=== PATIENT | female | born 1975 | race Caucasian/White ===

== ENCOUNTER 2022-05-02 06:32 | Inpatient (IN) | payer BC ==
[2022-05-02] MEDS ORDERED: Bupivacaine 0.5%/EPINEPHrine 1:200,000 50 ML MDV ONE (06:59)
[2022-05-02] MEDS ORDERED: cefOXitin 2 GM Vial ONE (06:59)
[2022-05-02] MEDS ORDERED: fentaNYL 250 MCG/5 ML SDV ONE ×2 (07:00→09:25)
[2022-05-02] MEDS ORDERED: Glycopyrrolate 0.2 MG/ML 5 ML MDV ONE (07:01)
[2022-05-02] MEDS ORDERED: Dexamethasone 4 MG/ML SDV ONE (07:01)
[2022-05-02] MEDS ORDERED: Ondansetron 4 MG/2 ML SDV ONE (07:01)
[2022-05-02] MEDS ORDERED: Neostigmine Methylsulfate 1 MG/ML 5 ML Syringe ONE (07:01)
[2022-05-02] MEDS ORDERED: Propofol 200 MG/20 ML SDV ONE (07:01)
[2022-05-02] MEDS ORDERED: Succinylcholine 200 MG/10 ML MDV ONE (07:01)
[2022-05-02] MEDS ORDERED: Rocuronium 50 MG/5 ML Vial ONE (07:01)
[2022-05-02] MEDS ORDERED: Acetaminophen 500 MG Tab PO ONE (07:30)
[2022-05-02] MEDS ORDERED: Celecoxib 200 MG Cap PO ONE (07:30)
[2022-05-02] MEDS ORDERED: Scopolamine 1.5 MG Transdermal Patch TRDERM SCH (07:30)
[2022-05-02] MEDS ORDERED: Dextrose 5%-Lactated Ringers 1,000 ML IV SCH (08:00)
[2022-05-02] MEDS ORDERED: Albuterol/Ipratropium 3.0-0.5 MG/3 ML Neb Soln NEB ONE (09:00)
[2022-05-02] MEDS ORDERED: cefOXitin 2 GM in Sodium Chloride 0.9% 50 ML IV ONE (09:00)
[2022-05-02] MEDS ORDERED: Ketamine 18 MG in Sodium Chloride 0.9% 19.82 ML IV SCH (09:15)
[2022-05-02] MEDS ORDERED: Ketamine 500 MG/5 ML MDV IV SCH (09:15)
[2022-05-02] MEDS ORDERED: Ropivacaine 50 ML, dexAMETHasone 8 MG, EPINEPHrine 0.4 MG, Sodium Chloride 0.9% 27.6 ML NERVRT SCH ×4 (09:15)
[2022-05-02] MEDS ORDERED: Labetalol 20 MG/4 ML Syringe ONE (09:33)
[2022-05-02 10:29] LABS: HEMOGLOBIN A1C 6.7 % (4.5-6.2)
[2022-05-02] MEDS ORDERED: Glucagon,Human Recombinant 1 MG Vial IM PRN (11:05)
[2022-05-02] MEDS ORDERED: 50% Dextrose in Water 50 ML Syringe IVPUSH PRN (11:05)
[2022-05-02] MEDS ORDERED: Insulin Lispro 100 Unit/ML 3 ML KwikPen SUBCUT ONE (11:15)
[2022-05-02] MEDS ORDERED: hydrOXYzine HCL 100 MG/2 ML SDV IM ONE (11:30)
[2022-05-02] MEDS ORDERED: Cyclobenzaprine 10 MG Tab PO PRN (12:52)
[2022-05-02] MEDS ORDERED: Metoclopramide 10 MG/2 ML SDV IVPUSH PRN (13:00)
[2022-05-02] MEDS ORDERED: Albuterol/Ipratropium 3.0-0.5 MG/3 ML Neb Soln INH PRN (13:00)
[2022-05-02] MEDS ORDERED: Labetalol 20 MG/4 ML Syringe IVPUSH PRN (13:00)
[2022-05-02] MEDS ORDERED: hydrOXYzine HCL 100 MG/2 ML SDV IM PRN (13:00)
[2022-05-02] MEDS ORDERED: oxyCODONE 5 MG Tab PO PRN (13:00)
[2022-05-02] MEDS ORDERED: diphenhydrAMINE 50 MG/ML SDV IVPUSH PRN (13:00)
[2022-05-02] MEDS ORDERED: HYDROmorphone 0.5 MG/0.5 ML Syringe IVPUSH PRN (13:00)
[2022-05-02] MEDS ORDERED: Acetaminophen 500 MG Tab PO PRN (13:00)
[2022-05-02] MEDS ORDERED: Ondansetron 4 MG/2 ML SDV IVPUSH PRN (13:00)
[2022-05-02] MEDS ORDERED: HYDROmorphone 1 MG/ML Syringe IV PRN (13:00)
[2022-05-02] MEDS: traMADol 50 MG Tab PO PRN ×2 (13:25→19:21)
[2022-05-02] MEDS: Acetaminophen 500 MG Tab PO SCH ×2 (14:11→21:39)
[2022-05-02] MEDS: Pantoprazole 40 MG Vial IVPUSH SCH (14:12)
[2022-05-02] MEDS: Dextrose 5%-Lactated Ringers 1,000 ML IV SCH (14:17)
[2022-05-02] MEDS: Lactated Ringers 1,000 ML IV SCH (14:17)
[2022-05-02] MEDS: Albuterol/Ipratropium 3.0-0.5 MG/3 ML Neb Soln INH SCH ×2 (14:30→20:40)
[2022-05-02] MEDS: DULoxetine 30 MG Cap PO SCH ×2 (15:29→20:38)
[2022-05-02] MEDS: cefOXitin 2 GM in Sodium Chloride 0.9% 50 ML IV SCH ×2 (16:09→21:39)
[2022-05-02] MEDS: MVI, Adult with Vitamin K 10 ML, Thiamine 200 MG, Zinc/Copper/Manganese/Selenium 1 ML i... IV SCH ×4 (16:09)
[2022-05-02] MEDS: Insulin Lispro 100 Unit/ML 3 ML KwikPen SUBCUT SCH ×2 (16:19→21:31)
[2022-05-02] MEDS: Heparin Sodium 5,000 Units/ML Vial SUBCUT SCH (17:33)
[2022-05-02] MEDS: Formoterol/Mometasone 200-5 MCG 8.8 GM Inhaler IH SCH (20:37)
[2022-05-03] MEDS: Dextrose 5%-Lactated Ringers 1,000 ML IV SCH (02:20)
[2022-05-03] MEDS: Lactated Ringers 1,000 ML IV SCH ×2 (02:21→15:56)
[2022-05-03] MEDS: cefOXitin 2 GM in Sodium Chloride 0.9% 50 ML IV SCH ×4 (04:10→21:18)
[2022-05-03] MEDS ORDERED: Iopamidol 612 MG/ML 50 ML SDV PO PRN (04:26)
[2022-05-03] MEDS: Insulin Lispro 100 Unit/ML 3 ML KwikPen SUBCUT SCH ×4 (05:14→21:18)
[2022-05-03] MEDS: Acetaminophen 500 MG Tab PO SCH ×3 (05:42→21:19)
[2022-05-03] MEDS: Heparin Sodium 5,000 Units/ML Vial SUBCUT SCH ×2 (05:46→17:08)
[2022-05-03] MEDS ORDERED: Ondansetron 4 MG Tab.DIS PO PRN (07:17)
[2022-05-03] MEDS: Albuterol/Ipratropium 3.0-0.5 MG/3 ML Neb Soln INH SCH ×4 (07:27→21:18)
[2022-05-03] MEDS: hydrOXYzine HCl 25 MG Tab PO PRN ×3 (08:12→19:38)
[2022-05-03] MEDS: Formoterol/Mometasone 200-5 MCG 8.8 GM Inhaler IH SCH ×2 (08:16→21:15)
[2022-05-03] MEDS: DULoxetine 30 MG Cap PO SCH ×3 (08:58→21:15)
[2022-05-03] MEDS: Celecoxib 200 MG Cap PO SCH ×2 (08:58→21:15)
[2022-05-03] MEDS: Lisinopril 10 MG Tab PO SCH (08:59)
[2022-05-03] MEDS: SCOPOLAMINE PATCH CHECK TOP SCH (08:59)
[2022-05-03] MEDS: Pantoprazole 40 MG Vial IVPUSH SCH (13:46)
[2022-05-03] MEDS: MVI, Adult with Vitamin K 10 ML, Thiamine 200 MG, Zinc/Copper/Manganese/Selenium 1 ML i... IV SCH ×4 (17:06)
[2022-05-04] MEDS: Lactated Ringers 1,000 ML IV SCH (02:10)
[2022-05-04] MEDS: Insulin Lispro 100 Unit/ML 3 ML KwikPen SUBCUT SCH (05:26)
[2022-05-04] MEDS: Acetaminophen 500 MG Tab PO SCH (06:01)
[2022-05-04] MEDS: Heparin Sodium 5,000 Units/ML Vial SUBCUT SCH (06:02)
[2022-05-04] MEDS: Albuterol/Ipratropium 3.0-0.5 MG/3 ML Neb Soln INH SCH (07:04)
[2022-05-04] MEDS: hydrOXYzine HCl 25 MG Tab PO PRN (07:25)
[2022-05-04] MEDS: Formoterol/Mometasone 200-5 MCG 8.8 GM Inhaler IH SCH (08:10)
[2022-05-04] MEDS: Lisinopril 10 MG Tab PO SCH (08:27)
[2022-05-04] MEDS: Celecoxib 200 MG Cap PO SCH (08:27)
[2022-05-04] MEDS: DULoxetine 30 MG Cap PO SCH (08:27)
[2022-05-04] MEDS: SCOPOLAMINE PATCH CHECK TOP SCH (08:28)
[2022-05-04] MEDS ORDERED: Cyanocobalamin (Vitamin B12) 1,000 MCG/ML SDV IM ONE (09:00)
== END 2022-05-04 09:45 | disposition home or self-care (01) | DRG 403 ==
LOC: EDSTATUS 07:15 → JP.SDS 07:31 → JP.MS 10:30
PROVIDERS: ADMIT Surgery; ATTEND Surgery
PROC: 0D164ZA Bypass Stomach to Jejunum, Percutaneous Endoscopic Approach (ICD-10-PCS; principal; 2022-05-02)
PROC: 0FB24ZX Excision of Left Lobe Liver, Percutaneous Endoscopic Approach, Diagnostic (ICD-10-PCS; 2022-05-02)
PROC: 0BQT4ZZ Repair Diaphragm, Percutaneous Endoscopic Approach (ICD-10-PCS; 2022-05-02)
DX: E66.01 Morbid (severe) obesity due to excess calories (principal); Z68.41 Body mass index [BMI] 40.0-44.9, adult; E11.9 Type 2 diabetes mellitus without complications; K44.9 Diaphragmatic hernia without obstruction or gangrene; R16.0 Hepatomegaly, not elsewhere classified
CPT/HCPCS: 36415; 74240; 74240-26; 82947; 83036; 85027; 86850; 86900; 86901; 88304; 88307; 88313; 93005; 93010; 94640; A9270-GY; C9113; J0171; J0330; J0694; J1100; J1170; J1644; J1815; J2405; J2704; J2710; J2795; J3010; J3410; J3411; J3420; J3490; J7120; J7121; J7620; Q9967